=== PATIENT | female | born 1955 | race American Indian/Alaskan Native ===

== ENCOUNTER 2016-09-04 13:04 | Outpatient (CLI) | payer MEDICARE ==
[2016-09-04 13:28] LABS: Hematocrit 39.2 % (30.3-42.9); Hemoglobin 13.1 gm/dl (10.1-14.3); Mean Corpuscular HGB Conc 33 % (30-34); Mean Corpuscular Hemoglobin 30 pg (28-32); Mean Corpuscular Volume 89 fl (79-97); Platelet Count 321 K/mm3 (140-440); Red Blood Count 4.43 M/mm3 (3.65-5.03); Red Cell Distribution Width 14.2 % (13.2-15.2); White Blood Count 5.3 K/mm3 (4.5-11.0)
[2016-09-04 13:49] LABS: Albumin 4.5 g/dL (3.9-5); BUN/Creatinine Ratio 9.41; Phosphorous 2.6 mg/dL (2.5-4.5); Potassium 3.8 mmol/L (3.6-5.0)
[2016-09-08 16:49] LABS: Vitamin D, 25-OH, Total 48 ng/mL (30-100)
== END 2016-09-04 13:05 | disposition home or self-care (01) ==
LOC: LAB 13:04
PROVIDERS: ATTEND Internal Medicine
DX: I12.9 Hypertensive chronic kidney disease with stage 1 through stage 4 chronic kidney disease, or unspecified chronic kidney disease (principal); N18.3 Chronic kidney disease, stage 3 (moderate); K21.9 Gastro-esophageal reflux disease without esophagitis; E78.4 Other hyperlipidemia; E55.9 Vitamin D deficiency, unspecified
CPT/HCPCS: 36415; 80048; 82040; 82306; 82570; 84100; 84156; 85027

== ENCOUNTER 2017-11-20 11:03 | Outpatient (CLI) | payer MEDICARE ==
[2017-11-20 11:37] LABS: Hematocrit 36.3 % (30.3-42.9); Hemoglobin 12.2 gm/dl (10.1-14.3); Mean Corpuscular HGB Conc 33 % (30-34); Mean Corpuscular Hemoglobin 30 pg (28-32); Mean Corpuscular Volume 89 fl (79-97); Platelet Count 335 K/mm3 (140-440); Red Blood Count 4.06 M/mm3 (3.65-5.03); Red Cell Distribution Width 14.2 % (13.2-15.2)
[2017-11-20 11:59] LABS: Albumin 3.9 g/dL (3.9-5); Calcium 9.6 mg/dL (8.4-10.2)
[2017-11-20 14:16] LABS: Creatinine,Urine 133.9 mg/dL (0.1-20.0); Protein/Creatinine Ratio,Urine 0.16
== END 2017-11-20 11:04 | disposition home or self-care (01) ==
LOC: LAB 11:03
PROVIDERS: ATTEND Internal Medicine
DX: I12.9 Hypertensive chronic kidney disease with stage 1 through stage 4 chronic kidney disease, or unspecified chronic kidney disease (principal); N18.3 Chronic kidney disease, stage 3 (moderate); K21.9 Gastro-esophageal reflux disease without esophagitis; E78.4 Other hyperlipidemia; E55.9 Vitamin D deficiency, unspecified; G47.37 Central sleep apnea in conditions classified elsewhere; Z79.899 Other long term (current) drug therapy
CPT/HCPCS: 36415; 80048; 82040; 82570; 84100; 84156; 85027

== ENCOUNTER 2018-02-23 13:56 | Outpatient (CLI) | payer MEDICARE ==
--- NOTE | 2018-02-24 15:52 | Mammography Report ---
BILATERAL DIGITAL SCREENING MAMMOGRAM with CAD: 02/23/18 13:56:00 CLINICAL: Routine screening. COMPARISON:03/03/16 FINDINGS: The breasts are almost entirely fatty.Bilateral benign vascular calcifications. No mass, architectural distortion or suspicious calcifications. IMPRESSION: No mammographic evidence of malignancy. BI-RADS CATEGORY: 2 -- Benign RECOMMENDATION: Routine mammographic screening in one year. COMMENT: Patient follow-up letters are generated by our [employer] application.
== END 2018-02-23 13:57 | disposition home or self-care (01) ==
LOC: MAMMO 13:56
PROVIDERS: ATTEND Family Medicine
DX: Z12.31 Encounter for screening mammogram for malignant neoplasm of breast (principal); Z90.710 Acquired absence of both cervix and uterus
CPT/HCPCS: 77067

== ENCOUNTER 2018-03-29 13:51 | Outpatient (CLI) | payer MEDICARE ==
[2018-03-29 14:14] LABS: Hematocrit 39.4 % (30.3-42.9); Hemoglobin 13.2 gm/dl (10.1-14.3); Mean Corpuscular HGB Conc 34 % (30-34); Mean Corpuscular Hemoglobin 31 pg (28-32); Mean Corpuscular Volume 91 fl (79-97); Platelet Count 309 K/mm3 (140-440); Red Blood Count 4.34 M/mm3 (3.65-5.03); Red Cell Distribution Width 13.5 % (13.2-15.2)
[2018-03-29 14:28] LABS: Protein/Creatinine Ratio,Urine 0.1
[2018-03-29 14:47] LABS: Albumin 4.6 g/dL (3.9-5); Calcium 10.2 mg/dL (8.4-10.2)
== END 2018-03-29 13:52 | disposition home or self-care (01) ==
LOC: LAB 13:51
PROVIDERS: ATTEND Internal Medicine
DX: N18.3 Chronic kidney disease, stage 3 (moderate) (principal); Z88.0 Allergy status to penicillin; Z88.6 Allergy status to analgesic agent; Z90.710 Acquired absence of both cervix and uterus
CPT/HCPCS: 36415; 80048; 82040; 82570; 84100; 84156; 85027

== ENCOUNTER 2019-01-24 14:38 | Emergency (ER) | payer MEDICARE ==
--- NOTE | 2019-01-24 22:58 | Emergency Department Report ---
HPI - General Chief Complaint: Medical Clearance Time Seen by Provider: 01/24/19 22:43 - HPI HPI: Room 10 The patient is a 63-year-old female presenting with a chief complaint of itching. The patient states for 2 months she's had intermittent diffuse body itching within the vaginal itching. Patient admits to dysuria but denies vaginal discharge. Patient denies hematuria but states she's had urinary frequency for the past 2-3 weeks. Patient does admit to a subjective fever. Location: [See above] Duration: [See above] Quality: [See above] Severity: [See above] Modifying factors: [see above] Context: [see above] Mode of transportation: [not driving] ED Past Medical Hx - Past Medical History Previous Medical History?: Yes Hx Hypertension: Yes Hx Congestive Heart Failure: Yes Hx Renal Disease: Yes Additional medical history: Depression, - Surgical History Past Surgical History?: Yes Additional Surgical History: hysterectomy - Family History Family history: no significant - Social History Smoking Status: Never Smoker Substance Use Type: None (denies illicit drug use) - Medications Home Medications: Home Medications Medication Instructions Recorded Confirmed Last Taken Type Hydralazine HCl 50 mg PO BID 06/29/18 06/29/18 06/29/18 History OXcarbazepine [Trileptal] 150 mg PO BID 06/29/18 06/29/18 06/29/18 History Simvastatin (Nf) [Zocor TAB] 20 mg PO QHS 06/29/18 06/29/18 06/29/18 History cloNIDine [Catapres] 0.1 mg PO BID 06/29/18 06/29/18 06/29/18 History Potassium Chloride [K-Dur] 20 meq PO QDAY #30 tablet 07/02/18 Unknown Rx Fluconazole [Diflucan TAB] 150 mg PO ONCE #1 tablet 01/25/19 Unknown Rx Phenazopyridine [Pyridium] 200 mg PO TID #6 tab 01/25/19 Unknown Rx diphenhydrAMINE [Benadryl CAP] 50 mg PO Q8HR PRN #10 capsule 01/25/19 Unknown Rx levoFLOXacin [Levaquin TAB] 500 mg PO QDAY #7 tablet 01/25/19 Unknown Rx ED Review of Systems ROS: Stated complaint: VAGINAL AREA/BURNING/ITCHING Other details as noted in HPI Constitutional: fever (subjective) Eyes: denies: eye pain ENT: denies: throat pain Respiratory: no symptoms reported Cardiovascular: denies: chest pain Endocrine: no symptoms reported Gastrointestinal: denies: abdominal pain Genitourinary: dysuria, frequency. denies: hematuria, discharge Musculoskeletal: denies: back pain Skin: denies: lesions Neurological: denies: headache Physical Exam - Physical Exam Vital Signs: Vital Signs 01/24/19 01/24/19 14:45 20:02 Temperature 98.3 F 98.8 F Pulse Rate 93 H 56 L Respiratory 17 18 Rate Blood Pressure 138/87 185/89 O2 Sat by Pulse 99 Oximetry Physical Exam: GENERAL: The patient is well-developed well-nourished female lying on stretcher not appearing to be in acute distress. [] HEENT: Normocephalic. Atraumatic. Extraocular motions are intact. Patient has moist mucous membranes. NECK: Supple. Trachea midline CHEST/LUNGS: Clear to auscultation. There is no respiratory distress noted. HEART/CARDIOVASCULAR: Regular. There is no tachycardia. There is no gallop rub or murmur. ABDOMEN: Abdomen is soft, with mild suprapubic discomfort to palpation. No rebound or guarding. Patient has normal bowel sounds. There is no abdominal distention. SKIN: There is no rash. There is no edema. There is no diaphoresis. NEURO: The patient is awake, alert, and oriented. The patient is cooperative. The patient has normal speech MUSCULOSKELETAL: There is no evidence of acute injury. PELVIC: Scant white discharge ED Course Vital Signs 01/24/19 01/24/19 14:45 20:02 Temperature 98.3 F 98.8 F Pulse Rate 93 H 56 L Respiratory 17 18 Rate Blood Pressure 138/87 185/89 O2 Sat by Pulse 99 Oximetry ED Medical Decision Making - Lab Data Result diagrams: 01/24/19 23:00 01/24/19 23:00 Laboratory Tests 01/24/19 01/24/19 01/24/19 23:00 23:00 23:00 WBC 5.0 RBC 4.47 Hgb 13.7 Hct 40.7 MCV 91 MCH 31 MCHC 34 RDW 16.9 H Plt Count 307 Seg Neutrophils % Vibration Technician WBC Morphology TNR Sodium 143 Potassium 3.9 Chloride 105.0 Carbon Dioxide 23 Anion Gap 19 BUN 22 H Creatinine 2.0 H Estimated GFR 30 BUN/Creatinine Ratio 11 Glucose 87 Calcium 10.4 H Total Bilirubin 0.90 AST 22 ALT 19 Alkaline Phosphatase 135 H Total Protein 8.5 H Albumin 4.4 Albumin/Globulin Ratio 1.1 Urine Color Urine Turbidity Urine pH Ur Specific [place] Urine Protein Urine Glucose (UA) Urine Ketones Urine Blood Urine Nitrite Urine Bilirubin Urine Urobilinogen Ur Leukocyte Esterase Urine WBC (Auto) Urine RBC (Auto) U Epithel Cells (Auto) Urine Bacteria (Auto) Urine Mucus 01/24/19 23:05 WBC RBC Hgb Hct MCV MCH MCHC RDW Plt Count Seg Neutrophils % WBC Morphology Sodium Potassium Chloride Carbon Dioxide Anion Gap BUN Creatinine Estimated GFR BUN/Creatinine Ratio Glucose Calcium Total Bilirubin AST ALT Alkaline Phosphatase Total Protein Albumin Albumin/Globulin Ratio Urine Color Yellow Urine Turbidity Cloudy Urine pH 5.0 Ur Specific [place] 1.023 Urine Protein <15 mg/dl Urine Glucose (UA) Neg Urine Ketones Tr Urine Blood Neg Urine Nitrite Neg Urine Bilirubin Neg Urine Urobilinogen 2.0 Ur Leukocyte Esterase Mod Urine WBC (Auto) 11.0 H Urine RBC (Auto) 5.0 U Epithel Cells (Auto) 31.0 H Urine Bacteria (Auto) 1+ Urine Mucus Few - Differential Diagnosis vaginal candidiasis, bacterial vaginosis, UTI Critical care attestation.: If time is entered above; I have spent that time in minutes in the direct care of this critically ill patient, excluding procedure time. ED Disposition Clinical Impression: Dysuria, Vaginal irritation, UTI (urinary tract infection) Disposition: - TO HOME OR SELFCARE Is pt being admited?: No Does the pt Need Aspirin: No Condition: Stable Instructions: Urinary Tract Infection in Women (ED) Additional Instructions: Return to the emergency department immediately should you develop worsening symptoms, fever, inability to tolerate food or liquid or any other concerns. Prescriptions: diphenhydrAMINE [Benadryl CAP] 50 mg PO Q8HR PRN #10 capsule PRN Reason: Itching Fluconazole [Diflucan TAB] 150 mg PO ONCE #1 tablet levoFLOXacin [Levaquin TAB] 500 mg PO QDAY #7 tablet Phenazopyridine [Pyridium] 200 mg PO TID #6 tab Referrals: AAMIR HINOJOSA MD [Primary Care Provider] - 3-5 Days Time of Disposition: 01:18
[2019-01-24 23:51] LABS: Hematocrit 40.7 % (30.3-42.9); Hemoglobin 13.7 gm/dl (10.1-14.3); Mean Corpuscular HGB Conc 34 % (30-34); Mean Corpuscular Volume 91 fl (79-97); Platelet Count 307 K/mm3 (140-440); Red Blood Count 4.47 M/mm3 (3.65-5.03); Red Cell Distribution Width 16.9 % (13.2-15.2)
[2019-01-25 00:02] LABS: Albumin 4.4 g/dL (3.9-5); Calcium 10.4 mg/dL (8.4-10.2)
[2019-01-25 00:06] LABS: Bacteria,Urine 1+ /HPF (Negative); Bilirubin,Urine NEG (Negative); Blood,Urine NEG (Negative); Color,Urine Yellow (Yellow); Mucus,Urine FEW /HPF; Protein,Urine <15 mg/dL mg/dL (Negative)
[2019-01-25 01:39] VITALS: BP 147/77
[2019-01-25 04:06] LABS: Basophils % (Manual) 0 % (0.0-1.8); Total Cells Counted 100
[2019-01-25 04:09] LABS: Platelet Estimate Consistent w Auto
== END 2019-01-25 01:30 | disposition home or self-care (01) ==
LOC: ED 14:38
DX: N39.0 Urinary tract infection, site not specified (principal); I11.0 Hypertensive heart disease with heart failure; I50.9 Heart failure, unspecified; Z90.710 Acquired absence of both cervix and uterus; Z79.899 Other long term (current) drug therapy; Z88.6 Allergy status to analgesic agent; Z88.0 Allergy status to penicillin
CPT/HCPCS: 36415; 80053; 81001; 85007; 85025; 87086; 87210; 87591; 99284

== ENCOUNTER 2020-01-13 08:02 | Emergency (ER) | payer MEDICARE ==
[2020-01-13 09:27] LABS: Basophils # (Auto) 0.1 K/mm3 (0.0-0.1); Eosinophils # (Auto) 0.1 K/mm3 (0.0-0.4); Eosinophils % (Auto) 1.6 % (0.0-4.3); Hematocrit 37.8 % (30.3-42.9); Hemoglobin 12.8 gm/dl (10.1-14.3); Lymphocytes # (Auto) 1.6 K/mm3 (1.2-5.4); Lymphocytes % (Auto) 23.8 % (13.4-35.0); Mean Corpuscular HGB Conc 34 % (30-34); Mean Corpuscular Volume 89 fl (79-97); Monocytes # (Auto) 0.8 K/mm3 (0.0-0.8); Monocytes % (Auto) 11.9 % (0.0-7.3); Platelet Count 315 K/mm3 (140-440); Red Blood Count 4.26 M/mm3 (3.65-5.03); Red Cell Distribution Width 14.4 % (13.2-15.2)
[2020-01-13 09:49] LABS: Calcium 10.3 mg/dL (8.4-10.2)
--- NOTE | 2020-01-13 11:12 | Emergency Department Report ---
HPI - General Chief Complaint: Psych PUI?: No Time Seen by Provider: 01/13/20 11:03 - HPI HPI: Room 8 The patient is a 64-year-old female present with a chief complaint of "acting strange." The patient has a history of schizophrenia and states her children brought her in for evaluation because they says she was "acting strange." The patient states she has been behaving like her normal self. Patient denies having any complaints. Patient denies auditory or visual hallucinations. Patient denies suicidal homicidal ideation ED Past Medical Hx - Past Medical History Previous Medical History?: Yes Hx Hypertension: Yes Hx Congestive Heart Failure: Yes Hx Renal Disease: Yes Hx Psychiatric Treatment: Yes (bipolar, schizophrenia) Additional medical history: Depression, - Surgical History Additional Surgical History: hysterectomy - Family History Family history: no significant - Social History Smoking Status: Never Smoker Substance Use Type: None (Denies illicit drug use) - Medications Home Medications: Home Medications Medication Instructions Recorded Confirmed Last Taken Type Hydralazine HCl 50 mg PO BID 06/29/18 06/29/18 06/29/18 History OXcarbazepine [Trileptal] 150 mg PO BID 06/29/18 06/29/18 06/29/18 History Simvastatin (Nf) [Zocor TAB] 20 mg PO QHS 06/29/18 06/29/18 06/29/18 History cloNIDine [Catapres] 0.1 mg PO BID 06/29/18 06/29/18 06/29/18 History Potassium Chloride [K-Dur] 20 meq PO QDAY #30 tablet 07/02/18 Unknown Rx Fluconazole (Nf) [Diflucan TAB] 150 mg PO ONCE #1 tablet 01/25/19 Unknown Rx Phenazopyridine [Pyridium] 200 mg PO TID #6 tab 01/25/19 Unknown Rx diphenhydrAMINE [Benadryl CAP] 50 mg PO Q8HR PRN #10 capsule 01/25/19 Unknown Rx levoFLOXacin [Levaquin TAB] 500 mg PO QDAY #7 tablet 01/25/19 Unknown Rx ED Review of Systems ROS: Stated complaint: MH Other details as noted in HPI Constitutional: no symptoms reported Respiratory: no symptoms reported Endocrine: no symptoms reported Psychiatric: denies: auditory hallucinations, visual hallucinations, homicidal thoughts, suicidal thoughts Physical Exam - Physical Exam Vital Signs: Vital Signs 01/13/20 08:07 Temperature 97.8 F Pulse Rate 84 Respiratory 20 Rate Blood Pressure 199/112 O2 Sat by Pulse 96 Oximetry Physical Exam: GENERAL: The patient is well-developed well-nourished female standing in room not appearing to be in acute distress. Pleasant affect HEENT: Normocephalic. Atraumatic. Extraocular motions are intact. Patient has moist mucous membranes. NECK: Supple. Trachea midline CHEST/LUNGS: Clear to auscultation. There is no respiratory distress noted. HEART/CARDIOVASCULAR: Regular. There is no tachycardia. There is no gallop rub or murmur. ABDOMEN: Abdomen is soft, nontender. Patient has normal bowel sounds. There is no abdominal distention. SKIN: There is no rash. There is no edema. There is no diaphoresis. NEURO: The patient is awake, alert, and oriented. The patient is cooperative. The patient has normal speech and gait. MUSCULOSKELETAL: There is no evidence of acute injury. ED Course Vital Signs 01/13/20 08:07 Temperature 97.8 F Pulse Rate 84 Respiratory 20 Rate Blood Pressure 199/112 O2 Sat by Pulse 96 Oximetry ED Medical Decision Making - Lab Data Result diagrams: 01/13/20 08:15 01/13/20 08:15 - Medical Decision Making See mental health recoverer's note. Patient with bizarre behavior and delusions warranting inpatient treatment - Differential Diagnosis Schizophrenia Critical care attestation.: If time is entered above; I have spent that time in minutes in the direct care of this critically ill patient, excluding procedure time. ED Disposition Clinical Impression: Schizophrenia Disposition: [id number]/TX-[facility] PS[facility] HOSP/PSY UNIT Is pt being admited?: No Does the pt Need Aspirin: No Condition: Stable Referrals: AAMIR HINOJOSA MD [Primary Care Provider] - 3-5 Days Time of Disposition: 13:18 (Awaiting acceptance)
[2020-01-13 12:06] LABS: Bacteria,Urine 1+ /HPF (Negative); Bilirubin,Urine NEG (Negative); Blood,Urine SM (Negative); Color,Urine Yellow (Yellow); Mucus,Urine FEW /HPF
[2020-01-13 12:10] LABS: Amphetamine Screen,Urine PRESUMPTIVE NEGATIVE; Benzodiazepines Screen,Urine PRESUMPTIVE NEGATIVE; Cannabinoid Screen,Urine PRESUMPTIVE NEGATIVE; Cocaine Screen,Urine PRESUMPTIVE NEGATIVE; Methadone Screen,Urine PRESUMPTIVE NEGATIVE; Opiate Screen,Urine PRESUMPTIVE NEGATIVE
[2020-01-13] MEDS ORDERED: cloNIDine 0.2 MG TAB PO ONE (12:55)
[2020-01-13 16:38] VITALS: BP 136/79
== END 2020-01-13 19:08 ==
LOC: EEVIPCON 08:02 → ED 08:02
DX: F20.9 Schizophrenia, unspecified (principal); I11.0 Hypertensive heart disease with heart failure; I50.9 Heart failure, unspecified; Z87.448 Personal history of other diseases of urinary system; Z90.710 Acquired absence of both cervix and uterus; Z79.2 Long term (current) use of antibiotics; Z79.899 Other long term (current) drug therapy; Z88.6 Allergy status to analgesic agent; Z88.0 Allergy status to penicillin
CPT/HCPCS: 36415; 80048; 80307; 80320; 81001; 85025; 96374; G0480

== ENCOUNTER 2021-06-13 18:57 | Emergency (ER) | payer MEDICARE ==
[2021-06-13 19:06] VITALS: BP 170/88
--- NOTE | 2021-06-13 20:02 | Emergency Department Report ---
ED General Adult HPI - General Chief complaint: Weakness Stated complaint: WEAKNESS Time Seen by Provider: 06/13/21 19:54 Source: EMS Mode of arrival: Wheelchair Limitations: No Limitations - History of Present Illness Initial comments: Patient is a 65-year-old female who presents with generalized weakness for the past 3 months. Has a diagnosis of hypertension and interstitial cystitis. Last UTI was 3 weeks ago per patient. Patient denies fevers or chills no shortness of breath no wheezing no nausea no vomiting. No dizziness lightheadedness or di aphoresis. Rates symptoms at 5/10. Does endorse polyuria frequency and urgency. She denies history of diabetes no cardiac history no other history. Denies cough denies smoking denies substance. Patient arrived to ED via POV and family member. - Related Data Home Medications Medication Instructions Recorded Confirmed Last Taken Hydralazine HCl 50 mg PO BID 06/29/18 06/29/18 06/29/18 OXcarbazepine [Trileptal] 150 mg PO BID 06/29/18 06/29/18 06/29/18 Simvastatin (Nf) [Zocor TAB] 20 mg PO QHS 06/29/18 06/29/18 06/29/18 cloNIDine [Catapres] 0.1 mg PO BID 06/29/18 06/29/18 06/29/18 Previous Rx's Medication Instructions Recorded Last Taken Type Potassium Chloride [K-Dur] 20 meq PO QDAY #30 tablet 07/02/18 Unknown Rx Fluconazole (Nf) [Diflucan TAB] 150 mg PO ONCE #1 tablet 01/25/19 Unknown Rx Phenazopyridine [Pyridium] 200 mg PO TID #6 tab 01/25/19 Unknown Rx diphenhydrAMINE [Benadryl CAP] 50 mg PO Q8HR PRN #10 capsule 01/25/19 Unknown Rx levoFLOXacin [Levaquin TAB] 500 mg PO QDAY #7 tablet 01/25/19 Unknown Rx Allergies Allergy/AdvReac Type Severity Reaction Status Date / Time aspirin AdvReac Bleeding Verified 06/13/21 19:05 Penicillins AdvReac Dizziness Verified 06/13/21 19:05 ED Review of Systems ROS: Stated complaint: WEAKNESS Other details as noted in HPI Constitutional: malaise. denies: chills, fever Eyes: denies: eye pain, eye discharge, vision change ENT: denies: ear pain, throat pain Respiratory: denies: cough, shortness of breath, wheezing Cardiovascular: denies: chest pain, palpitations Endocrine: no symptoms reported Gastrointestinal: denies: abdominal pain, nausea, diarrhea Genitourinary: urgency, dysuria. denies: frequency, hematuria, discharge Musculoskeletal: myalgia. denies: back pain, joint swelling, arthralgia Skin: denies: rash, lesions Neurological: denies: headache, weakness, paresthesias Psychiatric: denies: anxiety, depression Hematological/Lymphatic: denies: easy bleeding, easy bruising ED Past Medical Hx - Past Medical History Hx Hypertension: Yes Hx Congestive Heart Failure: Yes Hx Renal Disease: Yes Hx Psychiatric Treatment: Yes (bipolar, schizophrenia) Additional medical history: Depression, - Surgical History Additional Surgical History: hysterectomy - Social History Smoking Status: Never Smoker Substance Use Type: None (Denies illicit drug use) - Medications Home Medications: Home Medications Medication Instructions Recorded Confirmed Last Taken Type Hydralazine HCl 50 mg PO BID 06/29/18 06/29/18 06/29/18 History OXcarbazepine [Trileptal] 150 mg PO BID 06/29/18 06/29/18 06/29/18 History Simvastatin (Nf) [Zocor TAB] 20 mg PO QHS 06/29/18 06/29/18 06/29/18 History cloNIDine [Catapres] 0.1 mg PO BID 06/29/18 06/29/18 06/29/18 History Potassium Chloride [K-Dur] 20 meq PO QDAY #30 tablet 07/02/18 Unknown Rx Fluconazole (Nf) [Diflucan TAB] 150 mg PO ONCE #1 tablet 01/25/19 Unknown Rx Phenazopyridine [Pyridium] 200 mg PO TID #6 tab 01/25/19 Unknown Rx diphenhydrAMINE [Benadryl CAP] 50 mg PO Q8HR PRN #10 capsule 01/25/19 Unknown Rx levoFLOXacin [Levaquin TAB] 500 mg PO QDAY #7 tablet 01/25/19 Unknown Rx ED Physical Exam - General Limitations: No Limitations General appearance: alert, in no apparent distress - Head Head exam: Present: atraumatic, normocephalic - Eye Eye exam: Present: normal appearance, EOMI Pupils: Present: normal accommodation - ENT ENT exam: Present: mucous membranes moist - Neck Neck exam: Present: normal inspection, full ROM. Absent: tenderness - Respiratory Respiratory exam: Present: normal lung sounds bilaterally. Absent: respiratory distress, wheezes, stridor, chest wall tenderness - Cardiovascular Cardiovascular Exam: Present: regular rate, normal rhythm, normal heart sounds. Absent: systolic murmur, diastolic murmur, rubs, gallop - GI/Abdominal GI/Abdominal exam: Present: soft, normal bowel sounds. Absent: distended, tenderness, guarding, rebound, rigid, bruit, hernia - Rectal Rectal exam: Present: deferred - Extremities Exam Extremities exam: Present: normal inspection, full ROM. Absent: tenderness - Back Exam Back exam: Present: full ROM, CVA tenderness (R), CVA tenderness (L). Absent: vertebral tenderness - Neurological Exam Neurological exam: Present: alert, oriented X3, CN II-XII intact, normal gait, reflexes normal. Absent: motor sensory deficit - Expanded Neurological Exam Expanded Patient oriented to: Present: person, place, time Speech: Present: fluid speech Cranial nerves: EOM's Intact: Normal Motor strength exam: RUE: 5, LUE: 5, RLE: 5, LLE: 5 DTR: knee (R): 1+, knee (L): 1+ Best Eye Response ([place]): (4) open spontaneously Best Motor Response ([place]): (6) obeys commands Best Verbal Response ([place]): (5) oriented [place] Total: 15 - Psychiatric Psychiatric exam: Present: normal affect, normal mood - Skin Skin exam: Present: warm, dry, intact, normal color. Absent: rash ED Course Vital Signs 06/13/21 19:05 Temperature 99.2 F Pulse Rate 88 Respiratory 18 Rate Blood Pressure 170/88 [Left] O2 Sat by Pulse 99 Oximetry ED Medical Decision Making - Lab Data Result diagrams: 06/13/21 21:01 06/13/21 21:01 Labs 06/13/21 06/13/21 06/13/21 20:50 21:01 21:01 WBC 6.5 RBC 4.37 Hgb 12.5 Hct 38.5 MCV 88 MCH 29 MCHC 33 RDW 15.0 Plt Count 295 Lymph % (Auto) 26.5 [place] % (Auto) 7.9 H Eos % (Auto) 7.5 H Baso % (Auto) 1.0 Lymph # (Auto) 1.7 [place] # (Auto) 0.5 Eos # (Auto) 0.5 H Baso # (Auto) 0.1 Seg Neutrophils % 57.1 Seg Neutrophils # 3.7 Sodium 140 Potassium 3.8 Chloride 105.4 Carbon Dioxide 19 L Anion Gap 19 BUN 21 H Creatinine 1.8 H Estimated GFR 34 BUN/Creatinine Ratio 12 Glucose 114 H Calcium 9.4 Total Bilirubin 0.60 AST 17 ALT 14 Alkaline Phosphatase 171 H Troponin T < 0.010 Total Protein 8.0 Albumin 3.9 Albumin/Globulin Ratio 1.0 Urine Color Straw Urine Turbidity Clear Urine pH 6.0 Ur Specific [place] 1.005 Urine Protein <15 mg/dl Urine Glucose (UA) Neg Urine Ketones Neg Urine Blood Neg Urine Nitrite Neg Urine Bilirubin Neg Urine Urobilinogen < 2.0 Ur Leukocyte Esterase Neg Urine WBC (Auto) < 1.0 Urine RBC (Auto) 1.0 U Epithel Cells (Auto) 2.0 - EKG Data EKG shows normal: sinus rhythm Rate: normal - EKG Data When compared to previous EKG there are: changes noted Interpretation: normal EKG (NSR no ST Elevated ND, interp by ed attending ) - Radiology Data Radiology results: report reviewed, image reviewed CHEST 2 VIEWS INDICATION / CLINICAL INFORMATION: weakness. COMPARISON: 06/29/2018 FINDINGS: SUPPORT DEVICES: None. HEART / MEDIASTINUM: No significant abnormality. LUNGS / PLEURA: No significant pulmonary or pleural abnormality. No pneumothorax. ADDITIONAL FINDINGS: No significant additional findings. IMPRESSION: 1. No acute findings. Signer Name: Francis Shah MD Signed: 06/13/2021 8:43 PM Workstation Name: [id number] Transcribed By: IMAN Dictated By: Francis Shah MD Electronically Authenticated By: Francis Shah MD Signed Date/Time: 06/13/212042 - Medical Decision Making EKG normal sinus rhythm no ST elevated ND, heart score 0, trop less than 0.01, chest x-ray normal no infiltrates no opacities, there is no fevers no chills patient is tolerating p.o. intake and voiding without problems. Labs are noted. There is no acute infection noted. Patient will follow-up with Dr. Hinojosa in 2 to 3 days. Patient will return to emergency department should symptoms worsen patient verbalized agreement and understanding with discharge plan. P atient will be DC'd to home stable condition at this time. Critical care attestation.: If time is entered above; I have spent that time in minutes in the direct care of this critically ill patient, excluding procedure time. ED Disposition Clinical Impression: Malaise and fatigue Disposition: 01 HOME / SELF CARE / HOMELESS Is pt being admited?: No Does the pt Need Aspirin: No Condition: Stable Instructions: Weakness, [id number], Fatigue Additional Instructions: Follow-up with Dr. Hinojosa in 2 to 3 days. Return to emergency department should symptoms worsen. Referrals: AAMIR HINOJOSA MD [Staff Physician] - 2-3 Days Forms: Work/School Release Form(ED) Time of Disposition: 23:21
--- NOTE | 2021-06-13 20:48 | XRay Report ---
CHEST 2 VIEWS INDICATION / CLINICAL INFORMATION: weakness. COMPARISON: 06/29/2018 FINDINGS: SUPPORT DEVICES: None. HEART / MEDIASTINUM: No significant abnormality. LUNGS / PLEURA: No significant pulmonary or pleural abnormality. No pneumothorax. ADDITIONAL FINDINGS: No significant additional findings. IMPRESSION: 1. No acute findings. Signer Name: Francis Shah MD Signed: 06/13/2021 8:43 PM Workstation Name: [id number]
[2021-06-13 21:03] LABS: Bilirubin,Urine NEG (Negative); Blood,Urine NEG (Negative); Color,Urine Straw (Yellow); Protein,Urine <15 mg/dL mg/dL (Negative); Urobilinogen,Urine < 2.0 mg/dL (<2.0); WBC,Urine < 1.0 /HPF (0.0-6.0)
[2021-06-13 21:22] LABS: Basophils # (Auto) 0.1 K/mm3 (0.0-0.1); Eosinophils # (Auto) 0.5 K/mm3 (0.0-0.4); Eosinophils % (Auto) 7.5 % (0.0-4.3); Hematocrit 38.5 % (30.3-42.9); Hemoglobin 12.5 gm/dl (10.1-14.3); Lymphocytes # (Auto) 1.7 K/mm3 (1.2-5.4); Lymphocytes % (Auto) 26.5 % (13.4-35.0); Mean Corpuscular HGB Conc 33 % (30-34); Mean Corpuscular Volume 88 fl (79-97); Monocytes # (Auto) 0.5 K/mm3 (0.0-0.8); Monocytes % (Auto) 7.9 % (0.0-7.3); Platelet Count 295 K/mm3 (140-440); Red Blood Count 4.37 M/mm3 (3.65-5.03)
[2021-06-13 21:39] LABS: Alanine Aminotransferase 14 units/L (7-56); Albumin 3.9 g/dL (3.9-5); BUN/Creatinine Ratio 12; Blood Urea Nitrogen 21 mg/dL (7-17); Calcium 9.4 mg/dL (8.4-10.2); Hemolysis Index 22
--- NOTE | 2021-06-14 09:32 | Electrocardiograph Report ---
[facility] Test Date: 2021-06-13 Test Time: 20:25:14 Pat Name: JERMAINE SHOULDERS Department: Room: Gender: F Junior Mechanical Engineer: : 1955 Requested By: MARIA DOLORES DIETZ Order Number: [id number] Reading MD: Lonny Leonard Measurements Intervals [place] Rate: 71 P: 73 VA: 177 QRS: 45 QRSD: 91 T: 40 QT: 404 QTc: 440 Interpretive Statements Sinus rhythm No previous ECG available for comparison Electronically Signed On 06-14-2021 9:32:33 EDT by Lonny Leonard
== END 2021-06-13 23:33 | disposition home or self-care (01) ==
LOC: ED 18:57
DX: R53.81 Other malaise (principal); R53.83 Other fatigue; I10 Essential (primary) hypertension; Z86.79 Personal history of other diseases of the circulatory system; F31.9 Bipolar disorder, unspecified; F20.9 Schizophrenia, unspecified; Z88.0 Allergy status to penicillin; Z88.6 Allergy status to analgesic agent
CPT/HCPCS: 36415; 71046; 80053; 81001; 84484; 85025; 93005; 99284